=== PATIENT | male | born 1950 | race Caucasian/White ===

== ENCOUNTER 2019-04-29 15:41 | Inpatient (IN) | payer MEDICARE ==
[~2019-04-29] VITALS: Ht 154.9 cm; Wt 46.7 kg
[2019-04-29] VITALS (8 sets, daily range): BP systolic 110–139; BP diastolic 78–101
--- NOTE | ~2019-04-29 | PROC ---
[facility] [address] [place] [address] PROCEDURE REPORT Name: ALEXANDRIA AGUILERA Room: [address] IN M.R.#: [id number] Admission: 04/29/19 Attend Phys: Miguel Angel Gold MD Discharge: 05/13/19 Date of : 52 Report #: [id number] THIS REPORT FOR: //name// cc: Domitila Akhtar MD, Katrina MD ~ THIS REPORT FOR: //name// For GI report, please see the Provation report in Perceptive 7 content. By: [id number] Records Staff [facility] /BART
--- NOTE | ~2019-04-29 | PROC ---
[facility] [address] [place] [address] PROCEDURE REPORT Name: ALEXANDRIA AGUILERA Room: [address] ADM IN M.R.#: [id number] Admission: 04/29/19 Attend Phys: Miguel Angel Gold MD Discharge: Date of : 52 Report #: [id number] THIS REPORT FOR: //name// For GI report, please see the Provation report in Perceptive 7 content. By: [id number] Records Staff [facility] /BART
[2019-04-29] MEDS ORDERED: NORVASC 2.5 MG2.5 M1 PO (15:49)
[2019-04-29] MEDS ORDERED: BACLOFEN5 MG PO (15:52)
[2019-04-29] MEDS ORDERED: SERTRALINE HCL100 MG PO (15:52)
[2019-04-29 16:24] LABS: HEMATOCRIT 54.2 % (42.0-52.0); HEMOGLOBIN 18.6 gm/dL (14.0-18.0); MCH 33.1 pg (26.0-34.0); MCHC 34.4 g/dL (28.0-37.0); MCV 96.4 fL (80.0-100.0); MPV 8.5 fl. (7.2-11.1); NUCLEATED RBCS 0 /100WBC; PLATELET COUNT* 464 thou/uL (150-400); RBC 5.62 mil/uL (4.50-6.00); RDW-CV 14.4 % (10.5-14.5)
[2019-04-29 16:28] LABS: CALCIUM 9.6 mg/dL (8.5-10.1); CREATININE 1.8 mg/dL (0.6-1.3); POTASSIUM 4.5 mmol/L (3.5-5.1)
[2019-04-29 16:37] LABS: INR 1.4; PROTIME 13.7 Seconds (9.20-11.50)
[2019-04-29 16:39] LABS: ALBUMIN 4.1 g/dL (3.4-5.0); TOTAL BILIRUBIN 0.7 mg/dL (<0.1-1.0); TOTAL PROTEIN 9.2 g/dL (6.4-8.2)
[2019-04-29 16:45] LABS: URINE BLOOD NEGATIVE (Negative); URINE CLARITY CLEAR; URINE COLOR YELLOW; URINE GLUCOSE-RANDOM NEGATIVE (Negative); URINE KETONES TRACE (Negative); URINE LEUKOCYTES-REFLEX NEGATIVE (Negative); URINE NITRITE-REFLEX NEGATIVE (Negative); URINE PROTEIN NEGATIVE (Negative); URINE SPECIFIC GRAVITY 1.025 (1.005-1.030); URINE UROBILINOGEN 0.2 E.U./dl (0.2-1.0)
[2019-04-29 16:48] LABS: ICTOTEST (BILI CONFIRMATORY) Negative (Negative); URINE BILIRUBIN 2+ (Negative)
[2019-04-29 17:14] LABS: INFLUENZA A ANTIGEN Negative (Negative); INFLUENZA B ANTIGEN Negative (Negative)
[2019-04-29 17:14] LABS: ABSOLUTE LYMPHOCYTES 0.5 thou/uL (0.8-5.3); ABSOLUTE MONOCYTES 0.8 thou/uL (0.0-1.2); ABSOLUTE NEUTROPHILS 13.8 thou/uL (1.6-8.1); PLATELET ESTIMATE INCREASED
[2019-04-29 20:12] LABS: AMP/METHAMP Negative (Negative); BARBITURATES Negative (Negative); BENZODIAZEPINES Negative (Negative); COCAINE Negative (Negative); METHADONE Negative (Negative); OPIATES Negative (Negative); PCP Negative (Negative); THC POSITIVE (Negative)
[2019-04-30] VITALS (28 sets, daily range): BP systolic 114–155; BP diastolic 63–123
[2019-04-30 02:53] LABS: ABSOLUTE LYMPHOCYTES 0.6 thou/uL (0.8-5.3); ABSOLUTE MONOCYTES 0.9 thou/uL (0.0-1.2); ABSOLUTE NEUTROPHILS 11.8 thou/uL (1.6-8.1); BASOPHILS 0.2 %; HEMATOCRIT 41.2 % (42.0-52.0); LYMPHOCYTES 4.8 %; MCH 32.4 pg (26.0-34.0); MCHC 33.6 g/dL (28.0-37.0); MCV 96.2 fL (80.0-100.0); MONOCYTES 6.6 %; MPV 8.1 fl. (7.2-11.1); NUCLEATED RBCS 0 /100WBC; POLYS 88.4 %; RBC 4.28 mil/uL (4.50-6.00); RDW-CV 14.2 % (10.5-14.5); WBC 13.4 thou/uL (4.0-11.0)
[2019-04-30 03:01] LABS: HEMOGLOBIN 13.8 gm/dL (14.0-18.0); PLATELET COUNT* 320 thou/uL (150-400)
[2019-04-30 03:04] LABS: CALCIUM 7.8 mg/dL (8.5-10.1); CREATININE 1.3 mg/dL (0.6-1.3); POTASSIUM 3.6 mmol/L (3.5-5.1)
--- NOTE | 2019-04-30 05:34 | NUR ---
PT ADMITTED TO ICU AT 1950 FOR ACUTE RENAL FAILURE AND SEPSIS. PT RECIEVED FLUID BOLUS IN ED AND IV LEVAQUIN. PT'S SON NOTIFIED AND PROVIDED HEALTH HISTORY. PT NON VERBAL UNTIL 2300 THEN ASKING FOR SOMETHING TO DRINK. PT GIVEN PO FLUIDS WITHOUT DIFFICULTY. PT HAS GENERALIZED WEAKNESS MORE PROMINENT ON LEFT SIDE FROM CVA IN 2010. PT REPOSITIONED Q 2 HRS. BLOOD PRESSURE WITHIN NORMAL LIMITS DURING SHIFT. PT TACHYCARDIC THROUGHOUT NIGHT. HEART RATE 130 AT START OF SHIFT, CURRENTLY 115-125. PT AFEBRILE DURING SHIFT. PT MORE ALERT SHIFT PROGRESSED. WILL CONTINUE TO MONITOR CLOSELY.
--- NOTE | 2019-04-30 09:18 | EKG ---
[place] [address] ELECTROCARDIOGRAM REPORT Name: ALEXANDRIA AGUILERA Room: [address] ADM IN M.R.#: [id number] Admission: 04/29/19 Attend Phys: Miguel Angel Gold MD Discharge: Date of : 52 Report #: [id number] THIS REPORT FOR: //name// [facility] ED Test Date: 2019-04-29 Test Time: 15:53:41 Pat Name: ALEXANDRIA AGUILERA Department: Room: [facility] Gender: M Anesthesia Technician: : 1950 Requested By: Alexandria Saeed Order Number: [id number] MD: Giuseppe Aguilar Measurements Intervals [place] Rate: 140 P: 73 MI: 108 QRS: -70 QRSD: 84 T: 95 QT: 301 QTc: 460 Interpretive Statements Sinus tachycardia Consider right atrial enlargement Abnormal R-wave progression, late transition LVH with secondary repolarization abnormality Inferior infarct, old Artifact in lead(s) I,III,aVR,aVL,V1,V2,V3,V4,V5,V6 and baseline wander in lead (s) III,aVF No previous ECG available for comparison Electronically Signed On 04-30-2019 9:17:16 CERTIFIED WELLNESS PROGRAM COORDINATOR by Giuseppe Aguilar [email or web address] <ELECTRONICALLY SIGNED> By: Giuseppe Aguilar MD, FAC 04/30/19 0917 1553 1553 Giuseppe Aguilar MD, [facility] /EPI
--- NOTE | 2019-04-30 11:00 | NUR ---
INT ROUNDS: PT ADMITTED WITH ARF/SEPSIS. PER NURSING, HAVING DIFFICULTY SWALLOWING TODAY AND CONFUSED. PT NOT ABLE TO ANSWER QUESTIONS OTHER THEN HE LIVES WITH SON AND THAT SON WORKS. ATTEMPTED TO CONTACT SON/JOLYNN, NO ANSWER BUT LEFT MESSAGE
[2019-04-30 15:27] LABS: CALCIUM 8.3 mg/dL (8.5-10.1); CREATININE 1.3 mg/dL (0.6-1.3); POTASSIUM 3.5 mmol/L (3.5-5.1)
--- NOTE | 2019-04-30 17:44 | NUR ---
PT AOX1-2 THIS SHIFT. PT HAD ISSUES CHOKING WITH MORNING PILLS AND SPEECH WAS CONSULTED. SPEECH DID AN BEDSIDE SWALLOW AND THOUGHT THE PT MAY NEED A VIDEO SWALLOW BUT WAS OKAY WITH MECHANICAL GROUND DIET WITH ASPIRATION PXNS IN PLACE TO PREVENT ASPIRATION. AT LUNCH THIS RN ATTEMPTED TO FEED PT WITH ALL ASPIRATION PXNS IN PLACE AND REMINDING THE PT TO TAKE SLOW SIPS AND AFTER A FEW BITES OF MASHED POTATOES AND CARROTS THE PT HAD A COUGHING SPELL WHEN DRINKING HIS ICED TEA. HE VERBALIZED EXHAUSTION AFTER THE COUGHING SPELL AND WAS OKAY TO WAIT FOR SPEECH TO DO A VIDEO SWALLOW TO SEE IF HE WAS ASPIRATING. PT WENT FOR VIDEO SWALLOW THIS AFTERNOON AND IT WAS DETERMINED AFTER THIS HE NEEDED TO BE STRICT NPO. NPO STATUS MAINTAINED FOR THE REST OF THE SHIFT. DR LEHMAN WAS NOTIFIED AND MEDICATIONS CHANGED TO IV THAT COULD BE CHANGED AND GI CONSULT WAS PLACED FOR POSSIBLE PEG TUBE PLACEMENT. THIS RN CALLED AND UPDATED JOLYNN REGARDING THE PATIENT STATUS AND HE WAS TOLD ABOUT THE VIDEO SWALLOW AND POSSIBLE NEED FOR NG TUBE OR PEG TUBE PLACEMENT. PT SON WAS ALSO UPDATED REGARDING STACK REMOVAL AND HE STATED THAT HE WAS GLAD TO HAVE THAT OUT "SINCE THEY CAN BE SUCH AN INFECTION RISK". ASKED THE PIPE FITTER AMMONIA FOR AN EXTERNAL CATHETER FOR THIS PATIENT TO REDUCE INCONTINENCE AND POTENTIAL SKIN BREAKDOWN. BEDREST, Q2 TURNS, AND HOURLY ROUNDING MAINTAINED THIS SHIFT. WILL CONTINUE TO MONITOR AND ASSESS.
[2019-05-01] VITALS (10 sets, daily range): BP systolic 139–151; BP diastolic 86–101
[2019-05-01 04:10] LABS: ABSOLUTE LYMPHOCYTES 0.8 thou/uL (0.8-5.3); ABSOLUTE MONOCYTES 0.5 thou/uL (0.0-1.2); ABSOLUTE NEUTROPHILS 7.2 thou/uL (1.6-8.1); BASOPHILS 0.2 %; EOSINOPHILS 0.1 %; HEMATOCRIT 36.2 % (42.0-52.0); HEMOGLOBIN 12.4 gm/dL (14.0-18.0); MCHC 34.3 g/dL (28.0-37.0); MCV 96.4 fL (80.0-100.0); MONOCYTES 5.4 %; MPV 8.4 fl. (7.2-11.1); NUCLEATED RBCS 0 /100WBC; POLYS 85.3 %; RBC 3.76 mil/uL (4.50-6.00); WBC 8.4 thou/uL (4.0-11.0)
[2019-05-01 04:29] LABS: PLATELET COUNT* 228 thou/uL (150-400)
[2019-05-01 04:33] LABS: ALBUMIN 2.5 g/dL (3.4-5.0); CALCIUM 7.7 mg/dL (8.5-10.1); POTASSIUM 3.2 mmol/L (3.5-5.1); TOTAL BILIRUBIN 0.7 mg/dL (<0.1-1.0); TOTAL PROTEIN 5.8 g/dL (6.4-8.2)
--- NOTE | 2019-05-01 06:24 | NUR ---
VITALS STABLE, AFEBRILE. PT ORIENTED TO YEAR AND SELF. HARD TO UNDERSTAND BUT ABLE TO EXPRESS HIMSELF WHISPERING. DENIES PAIN. SLEPT THROUGH THE NIGHT. 600CC UOP, NO BM. REMAINS NPO. Q2 TURNS FOR SKIN INTEGRITY. WILL CONTINUE MONITORING.
--- NOTE | 2019-05-01 10:49 | NUR ---
REPORT GIVEN TO REA HENDRIX, ALL QUESTIONS ANSWERED. PATIENT TAKEN BY BED TO ROOM 230 AT THIS TIME WITH NURSING STAFF. ALL BELONGINGS, CHART SENT WITH ROSA MARIA.
--- NOTE | 2019-05-01 12:14 | NUR ---
PT TRANSFERRED TO TELE TODAY. CALL TO SON/JOLYNN. DISCUSSED HOME SITUATION/DC PLANNING. PER JOLYNN, PT HAD CVA IN 2011 WAS AT [facility] AND THEN TRANSFERRED TO A [facility] IN [facility] WHERE HE STAYED FOR ABOUT A 'YEAR'. JOLYNN AND HIS SISTER TOOK PT OUT OF THERE AT THAT TIME AND BROUGHT PT HOME. JOLYNN STATES HE HAS NOT HAD HH, THAT HE LIVES WITH HIM AND UP UNTIL ABOUT A WEEK AND A HALF AGO, PT WAS ABLE TO TRANSFER FROM W/C TO BED, TOILET OR SHOWER BENCH, COULD DO SOME COOKING AND CARE FOR SELF. JOLYNN WORKS NIGHTS AND PT GOES TO BED WHEN HE LEAVES. JOLYNN STATED HE THOUGHT PT WAS DOING FINE UNTIL RECENTLY. DISCUSSED CURRENT POC AND POSSIBLE NEED FOR FEEDING TUBE. HE WAS OPEN TO THAT, STATES HE IS PT'S DPOA, ASKED THAT HE BRING IN PAPERWORK STATING THAT. ALSO DISCUSSED POSSIBLE REHAB OR SNF, HE IS ALSO OPEN TO THAT, WOULD LIKE TO SEE PT GET BACK TO HIS 'BASELINE.' WILL FOLLOW
--- NOTE | 2019-05-01 12:52 | NUR ---
Nutrition: Possible PEG placement and TF start. RD put TF recs in [facility] this morning, under RD Assessment Forms. Recommend Nepro @ goal rate 30mL. May switch to Jevity 1.5 once renal FXN improves. See details in Assessment Forms.
--- NOTE | 2019-05-01 13:49 | 2DMMODE ---
[place] [address] 2 D/M-MODE ECHOCARDIOGRAM Name: ALEXANDRIA AGUILERA Room: [address] IN [facility]#: [id number] Admission: 04/29/19 Attend Phys: Miguel Angel Gold, Discharge: Date of : 52 Date of Service: 05/01/19 1349 Report #: [id number] THIS REPORT FOR: //name// APPROVED REPORT Study performed: 05/01/2019 11:08:48 EXAM: Comprehensive 2D, Doppler, and color-flow Echocardiogram Patient Location: In-Patient Room #: 230 Status: routine BSA: 1.38 HR: 94 bpm BP: 151/93 mmHg Rhythm: NSR Other Information Study Quality: Excellent Indications CVA/TIA Echo Enhancing Agent Indication: Rule out Shunt Agent(s) / Amount(s) Used: Agitated Saline 10 cc 2D Dimensions IVSd: 8.91 (7-11mm) LVOT Diam: 19.46 (18-24mm) LVDd: 33.86 mm PWd: 7.82 (7-11mm) Ascending Ao: 27.34 (22-36mm) LVDs: 14.82 (25-40mm) Aortic Root: 32.34 mm Aortic Valve AoV Peak Pool.: 0.86 m/s AO Peak Gr.: 2.98 mmHg LVOT Max P.54 mmHg AO Mean Gr.: 1.85 mmHg LVOT Mean P.41 mmHg LVOT Max V: 0.94 m/s AO V2 VTI: 15.01 cm LVOT Mean V: 0.76 m/s ADALGISA (VTI): 2.68 cm2 LVOT V1 VTI: 13.53 cm Mitral Valve E/A Ratio: 0.76 MV Decel. Time: 220.47 ms MV E Max Pool.: 0.59 m/[place] [address] 2 D/M-MODE ECHOCARDIOGRAM Name: ALEXANDRIA AGUILERA Room: [address] IN .R.#: [id number] Admission: 04/29/19 Attend Phys: Miguel Angel Gold, Discharge: Date of : 52 Date of Service: 05/01/19 1349 Report #: [id number] MV PHT: 63.94 ms MVA (PHT): 3.44 cm2 TDI E/Lateral E': 7.38 E/Medial E': 5.90 Medial E' Pool.: 0.10 m/s Lateral E' Pool.: 0.08 m/s Pulmonary Valve PV Peak Pool.: 0.90 m/s PV Peak Gr.: 3.27 mmHg Left Ventricle The left ventricle is normal size. There is normal LV segmental wall motion. There is normal left ventricular wall thickness. Left ventricular systolic function is normal. The left ventricular ejection fraction is within the normal range. LVEF is >70%. Grade I - abnormal relaxation pattern. Right Ventricle The right ventricle is normal size. The right ventricular systolic function is normal. Atria The left atrium size is normal. The interatrial septum is intact with no evidence for an atrial septal defect. The right atrium size is normal. Aortic Valve The aortic valve is normal in structure. No aortic regurgitation is present. There is no aortic valvular stenosis. Mitral Valve The mitral valve is normal in structure. There is trace mitral valve regurgitation noted. No evidence of mitral valve stenosis. Tricuspid Valve The tricuspid valve is normal in structure. Unable to assess PA pressure. Trace tricuspid regurgitation. Pulmonic Valve Pulmonic valve is not well visualized. There is no pulmonic valvular regurgitation. Great Vessels The aortic root is normal in size. IVC is normal in size and collapses >50% [place] [address] 2 D/M-MODE ECHOCARDIOGRAM Name: ALEXANDRIA AGUILERA Room: [address] IN .#: [id number] Admission: 04/29/19 Attend Phys: Miguel Angel Gold, Discharge: Date of : 52 Date of Service: 05/01/19 1349 Report #: [id number] Pericardium There is no pericardial effusion. <Conclusion> LVEF is >70%. The interatrial septum is intact with no evidence for an atrial septal defect. <ELECTRONICALLY SIGNED> By: Giuseppe Aguilar MD, FACC 05/01/19 1349 1349 1349 Giuseppe Aguilar MD, FACC /INF
--- NOTE | 2019-05-01 16:34 | NUR ---
I have reviewed the documentation by CASSANDRA INGRAM from 05/01/19 to 05/01/19 and I concur with it. CLARENCE BAL
--- NOTE | 2019-05-01 18:20 | NUR ---
REC PATIENT FROM ICU AROUND 1130AM. PATIENT ORIENTED TO SELF, BUT DIFFICULT TO CHECK ORIENTATION DUE TO WHISPERING. NSR TO ST ON TELE, PATIENT INCONTINENT OF BOWEL AND BLADDER. STRICT NPO DUE TO ASPIRATION RISK. I HAVE REVIEWED AND AGREE WITH REASSESSMENT OF SENIOR DATABASE ENGINEER TODD. HOURLY ROUNDING PERFORMED, CALL LIGHT WITHIN REACH OF PATIENT.
[2019-05-02] VITALS: BP 159/103
[2019-05-02 04:00] VITALS: BP 120/60
[2019-05-02 05:28] LABS: ABSOLUTE LYMPHOCYTES 0.7 thou/uL (0.8-5.3); ABSOLUTE MONOCYTES 0.6 thou/uL (0.0-1.2); ABSOLUTE NEUTROPHILS 12.4 thou/uL (1.6-8.1); BASOPHILS 0.1 %; HEMATOCRIT 41.5 % (42.0-52.0); HEMOGLOBIN 13.9 gm/dL (14.0-18.0); LYMPHOCYTES 4.8 %; MCH 32.2 pg (26.0-34.0); MCHC 33.4 g/dL (28.0-37.0); MCV 96.7 fL (80.0-100.0); MONOCYTES 4.1 %; MPV 9.1 fl. (7.2-11.1); NUCLEATED RBCS 0 /100WBC; PLATELET COUNT* 221 thou/uL (150-400); RDW-CV 13.7 % (10.5-14.5); WBC 13.7 thou/uL (4.0-11.0)
[2019-05-02 05:45] LABS: CALCIUM 8.3 mg/dL (8.5-10.1); CREATININE 0.9 mg/dL (0.6-1.3); POTASSIUM 4.1 mmol/L (3.5-5.1); TOTAL BILIRUBIN 0.9 mg/dL (<0.1-1.0); TOTAL PROTEIN 6.3 g/dL (6.4-8.2)
[2019-05-02 05:46] LABS: ALBUMIN 2.7 g/dL (3.4-5.0)
[2019-05-02 05:48] LABS: CHOLESTEROL 182 mg/dL (<200); HDL CHOLESTEROL 31 mg/dL (>40); LDL CHOLESTEROL 121 mg/dL (<100); TC:HDL 5.9 Ratio (Not establshd); TRIGLYCERIDE 152 mg/dL (<150); VLDL 30 mg/dL (<40)
[2019-05-02 06:05] LABS: SERUM ASSESSMENT CLEAR
[2019-05-02 08:00] VITALS: BP 126/91
[2019-05-02 12:10] VITALS: BP 133/85
[2019-05-02 17:10] VITALS: BP 129/86
--- NOTE | 2019-05-02 18:00 | NUR ---
VSS, ALERT BUT DIFFICULT TO CHECK ORIENTATON, PATIENT WHISPERS. SR TO ST ON TELE, RIGHT ARM FLACCID FROM STROKE IN 2010. GENERALIZED WEAKNESS AND REQUIRES CONTINUOUS REPOSITIONING. INCONTINENT OF BOWEL AND BLADDER, STRICT NPO DUE TO ASPIRATION. HOURLY ROUNDING PERFORMED, POSSESSIONS AND CALL LIGHT WITHIN REACH
[2019-05-02 20:00] VITALS: BP 164/98
[2019-05-03 00:10] VITALS: BP 123/81
[2019-05-03 04:29] VITALS: BP 137/89
[2019-05-03 05:47] LABS: HEMATOCRIT 37.8 % (42.0-52.0); HEMOGLOBIN 13.1 gm/dL (14.0-18.0); MCH 32.9 pg (26.0-34.0); MCHC 34.6 g/dL (28.0-37.0); MCV 95.3 fL (80.0-100.0); NUCLEATED RBCS 0 /100WBC; PLATELET COUNT* 189 thou/uL (150-400); RBC 3.97 mil/uL (4.50-6.00); RDW-CV 13.4 % (10.5-14.5); WBC 13.3 thou/uL (4.0-11.0)
--- NOTE | 2019-05-03 06:01 | NUR ---
PT HAD NO C/O PAIN, DID HAVE SOME DISCOMFORT REQUIRING FREQUENT REPOSITIONING. NO OTHER CONCERNS STATED BY PT. CURRENTLY ASLEEP IN BED WITH CALL LIGHT WITHIN REACH AND BED ALARM IS ON.
[2019-05-03 06:13] LABS: ALBUMIN 2.5 g/dL (3.4-5.0); CALCIUM 7.8 mg/dL (8.5-10.1); CREATININE 0.9 mg/dL (0.6-1.3); POTASSIUM 3.3 mmol/L (3.5-5.1); TOTAL BILIRUBIN 0.9 mg/dL (<0.1-1.0); TOTAL PROTEIN 5.9 g/dL (6.4-8.2)
[2019-05-03 06:41] LABS: ABSOLUTE LYMPHOCYTES 1.2 thou/uL (0.8-5.3); ABSOLUTE MONOCYTES 0.5 thou/uL (0.0-1.2); ABSOLUTE NEUTROPHILS 11.6 thou/uL (1.6-8.1); ANISOCYTOSIS 1+; PLATELET ESTIMATE ADEQUATE; POIKILOCYTOSIS 1+
[2019-05-03 07:17] LABS: ESR (SEDRATE) 40 mm/hr (0-20)
[2019-05-03 08:00] VITALS: BP 126/96
[2019-05-03 12:28] VITALS: BP 135/88
[2019-05-03 16:30] VITALS: BP 134/80
--- NOTE | 2019-05-03 18:30 | NUR ---
VSS, PT ALERT BUT DIFFICULT TO CHECK ORIENTATION-PT WHISPERS, ST ON TELE, INCONTINENT OF B&B, MAX ASSIST-FLACCID RIGHT ARM AND GENERALIZED WEAKNESS DUE TO STROKE IN 2010, STRICT NPO DUE TO ASPIRATION. HOURLY ROUNDING PERFORMED, CALL LIGHT WITHIN REACH.
[2019-05-03 20:12] VITALS: BP 140/94
[2019-05-04] VITALS: BP 151/97
[2019-05-04 04:00] VITALS: BP 162/96
--- NOTE | 2019-05-04 05:31 | NUR ---
PATIENT REMAINS NPO. INCONTINENT OF URINE AND BOWEL MULTIPLE TIMES THROUGHOUT SHIFT. JOVON CARE PROVIDED WITH INCONTINENCE CHECKS. PATIENT DENIES PAIN. POSSIBLE PEG TUBE PLACEMENT. PENDING CONSENT FROM SON/DPOA. CALL LIGHT WITHIN REACH
[2019-05-04 05:49] LABS: ABSOLUTE LYMPHOCYTES 0.9 thou/uL (0.8-5.3); ABSOLUTE MONOCYTES 0.7 thou/uL (0.0-1.2); ABSOLUTE NEUTROPHILS 9.7 thou/uL (1.6-8.1); BASOPHILS 0.1 %; EOSINOPHILS 0.4 %; HEMATOCRIT 38.8 % (42.0-52.0); HEMOGLOBIN 13.5 gm/dL (14.0-18.0); LYMPHOCYTES 7.9 %; MCH 33.2 pg (26.0-34.0); MCHC 34.8 g/dL (28.0-37.0); MCV 95.6 fL (80.0-100.0); MONOCYTES 6.1 %; MPV 9.3 fl. (7.2-11.1); NUCLEATED RBCS 0 /100WBC; PLATELET COUNT* 203 thou/uL (150-400); POLYS 85.5 %; RBC 4.06 mil/uL (4.50-6.00); RDW-CV 13.5 % (10.5-14.5); WBC 11.4 thou/uL (4.0-11.0)
[2019-05-04 06:01] LABS: INR 1.1; PROTIME 11.5 Seconds (9.20-11.50)
[2019-05-04 06:05] LABS: CALCIUM 8.2 mg/dL (8.5-10.1); CREATININE 0.8 mg/dL (0.6-1.3); POTASSIUM 4.1 mmol/L (3.5-5.1)
--- NOTE | 2019-05-04 08:53 | NUR ---
Nutrition: Pt NPO d/t aspiration. PEG to be placed. RECOMMEND JEVITY 1.5 @ GOAL RATE 40mL/HR. OR IF BOLUS FEEDS, JEVITY 1.5 @ 4-5 CARTONS PER DAY. See details in RD Reassessment Form.
--- NOTE | 2019-05-04 09:55 | NUR ---
PT OFF UNIT TO PREOP.
--- NOTE | 2019-05-04 10:23 | NUR ---
CM CALLED PT SON, JOLYNN, 2X RE: DPOA; LEFT VOICEMAILS.
[2019-05-04 12:00] VITALS: BP 147/100
--- NOTE | 2019-05-04 12:03 | CON ---
[facility] [address] [place] [address] CONSULTATION Name: ALEXANDRIA AGUILERA Room: [address] IN M.R.#: [id number] Admission: 04/29/19 Attend Phys: Miguel Angel Gold MD Discharge: Date of : 52 Report #: [id number] THIS REPORT FOR: //name// CC: Miguel Angel Trana Giovana DATE OF SERVICE: 04/30/2019 HISTORY OF PRESENT ILLNESS: A 68-year-old male patient, who is unable to provide any history at all. I called the patient's son whose number is in the chart, but he did not continuous pickling line pickler his cell phone. History is completely from the record and that also only from the Emergency Room physician because he was the only one who had any contact with the patient's son. By history, the patient is deteriorating in last few days. 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 The record indicated that he had a stroke in 2010. The son indicated to the Emergency Room physician that the patient can accomplish his daily activity, but from the amount of deficit he has, it will be difficult. In any event, he has deteriorated and on examination, it was found that his white count was up and his sodium is up at 158. His BUN is 79 and is 57 today, so he appeared to be significantly dehydrated with severe hypernatremia. His calcium is down. REVIEW OF SYSTEMS: Basically unavailable except from the record and to indicate that the patient had stroke in 2010. It is not clear what hospital he was in and what his residual weakness was except from the interview of Emergency Room physician with the son. A 14-point review of system was attempted, but this is all I can get. PAST MEDICAL HISTORY: Positive for CVA and hepatitis as per records. FAMILY HISTORY: Unavailable. SOCIAL HISTORY: Apparently, he does not smoke. PHYSICAL EXAMINATION: Indicate that he does not know what month it is. He does have some speech, which is difficult to understand. He does not know what hospital he is in. His cranial nerve examination 212 was attempted. 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 The right spastic hemiparesis involving right upper and right lower extremity. He moves the left side upper and lower extremity, but does not cooperate with any further testing. I could not look at the fundus. Cardiac examinations appear unremarkable. He does have some respiratory difficulty, but no edema, cyanosis or jaundice. LABORATORY DATA: Summarized above. CT 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 I do not think further plan can be made until we can contact the son. We will continue to make an effort. I also need to find out how aggressive they want to be and presently I will suggest continuing the correction of his metabolic problems. Dr. Moore will follow up this patient with you from tomorrow. <ELECTRONICALLY SIGNED> By: Aníbal Mendez MD 05/04/19 1203 1056 [id number] Mendez MD /nt
--- NOTE | 2019-05-04 12:03 | EEG ---
[facility] [address] [place] [address] EEG STUDY REPORT Name: ALEXANDRIA AGUILERA Room: [address] IN M.R.#: [id number] Admission: 04/29/19 Attend Phys: Miguel Angel Gold MD Discharge: Date of : 52 Report #: [id number] THIS REPORT FOR: //name// CC: Miguel Angel Gold Domitila Akhtar DATE OF SERVICE: 05/01/2019 The patient is being evaluated for altered mental status. EEG was done by placing the electrode by standard 10-20 system of electrode placement. Both referential and sequential montages were used for recording. Background activity in this patient is asymmetrical. On the right side, it does go up to about 8 Hz, but left side, it is slower. On both sides, the activity is pretty slow. Photic stimulation is unremarkable. The patient became drowsy and that is how associated with bilateral slowing and vertex sharp waves. Throughout the record, no active epileptiform activity was noticed. IMPRESSION: This is an abnormal EEG because it is slow on both sides. In that circumstances, the left-sided lesion should be excluded. The EEG also is slow in generalized fashion, which is a nonspecific finding, which can occur with encephalopathy, dementia, effect of psychotropic medication, etc. Clinical correlation is recommended. <ELECTRONICALLY SIGNED> By: Aníbal Mendez MD 05/04/19 1203 1743 1917Aníbal Mendez MD /reva
--- NOTE | 2019-05-04 12:25 | NUR ---
PT RETURN FROM PROCEDURE WITH PEG TUBE IN PLACE. PEREZ RN REPORT THAT PEG TUBE IS OK TO USE FOR MEDS AND FLUSHES BUT NO CONTINOUS FEEDING RIGHT NOW. WILL CONTINUE TO ASSESS.
--- NOTE | 2019-05-04 15:33 | NUR ---
CHANGED DRESSING ON COCYX ARE AND APPLIED BARRIER CREAM. WILL CONTINUE TO TURN Q 2 HOURS
[2019-05-04 16:00] VITALS: BP 190/105
--- NOTE | 2019-05-04 16:49 | NUR ---
I have reviewed the documentation by CASSANDRA INGRAM from 05/04/19 to 05/04/19 and I concur with it. CLARENCE BAL
[2019-05-04 18:53] VITALS: BP 152/103
[2019-05-04 20:00] VITALS: BP 160/110
[2019-05-05] VITALS (10 sets, daily range): BP systolic 98–192; BP diastolic 57–121
--- NOTE | 2019-05-05 04:52 | NUR ---
ASSUMED PATIENT CARE AT 1900. ASSESSMENT COMPLETED CHARTED. PATIENT IS MED-SURG STATUS. HOURLY ROUNDING IN PLACE FOR PATIENT SAFETY. CLWR.
--- NOTE | 2019-05-05 11:24 | NUR ---
VM LEFT FOR PTS DIAMANTE NEIL TO CALL RE DC PLANNING AND SNU PLACEMENT
--- NOTE | 2019-05-05 13:26 | NUR ---
SPOKE WITH PT'S SON JOLYNN WHO IS DPOA ON PHONE. HE HAS FINANCIAL CONCERNS ABOUT PT GOING TO SNF AND THINKS HE WILL REQUIRE LTC AFTER SNU. REQUESTED INFORMATION TO BE SENT TO [facility] "AND OTHER PLACES IN [place] THAT ARE [place]". REFERRALS SENT TP [facility]. WILL AWAIT ACCEPTANCE
--- NOTE | 2019-05-05 14:59 | NUR ---
SPOKE TO ELOY AT [facility] FOR THE [facility]. SHE IS EVALUATING PT AND STATES THEY COULD POSSIBLY TAKE PT ON THEIR EXTENDED UNIT WITH TRANSFER TO LTC WHEN APPROPRIATE
--- NOTE | 2019-05-05 16:09 | NUR ---
WOUND NURSE: GREGG SEEN TO ADDRESS SACRAL LESIONS. ALL LESIONS WITH PARTIAL THICKNESS TISSUE LOSS, PINKISH RED, NONGRANULATING TISSUE; NO ACTIVE DRAINAGE. NO PERIWOUND REDNESS. CLEANSED WITH SOAP AND WATER, RINSED, PATTED DRY. APPLIED MARATHON SKIN PROTECTANT TO EACH WOUND BED X 3 AND LET DRY. PATIENT TO BE REPOSITIONED EVERY ONE TO 2 HOURS LEFT SACRAL WOUND MEASURES 3.0 X 3. X 0.1 CM. RIGHT SUPERIOR SACRAL LESION MEASURES 1.5 X 1.0 X 0.1 CM. RIGHT INFERIOR SACRAL LESION MEASURES 1.0 X 1.0 X 0.1 CM. PATIENT IS NOT TEACHABLE.
--- NOTE | 2019-05-05 18:38 | NUR ---
PT HAS RESTED COMFORTABLY WITH SIGNS OF DISTRESS ON ROUNDING. BP HAS REMAINED ELEVATED. NON VERBAL. PT BEGAN BOWEL PREP TODAY FOR COLONOSCOPY SATURDAY.PT PEG TUBE IS FLUSHING WELL WITH MEDS AND LITTLE RESIDUAL. PT IS WC BOUND.FALL PRECAUTIONS IN PLACE. [facility]. REPORT CALLED TO ZAYRA WHO ASSUMED PT CARE WITHOUT FURTHER QUESTIONS.
--- NOTE | 2019-05-05 19:10 | NUR ---
PT ON FLOOR ROOM 312, BP LOW, TEMP ELEVATED, TACHY. NSG SUP NANCE ON FLOOR INITIATING RAPID RESPONSE. EKG OBTAINED, LABS DRAWN. PT AO TO SELF. DIAPHORETIC. REPORT RECEIVED FROM DAY RN. WILL CONTINUE TO MONITOR AND PROVIDE CARES NEEDED.
--- NOTE | 2019-05-05 19:45 | NUR ---
PT AO TO SELF, WHISPERS HIS NAME WHEN ASKED AND WHISPERS NO WHEN ASKED IF HE HAS PAIN. TREMORS, OCC SPASTIC MOVEMENT OF L ARM NOTED. VSS, TEMP 97.2 AXILLARY. SUP STATES EKG IMPROVED FROM ADMISSION. AWAITING LAB RESULTS.SAT 96%.
[2019-05-05 19:53] LABS: HEMOGLOBIN 14.4 gm/dL (14.0-18.0); MCH 32.7 pg (26.0-34.0); MCHC 34.3 g/dL (28.0-37.0); MCV 95.3 fL (80.0-100.0); MPV 9.4 fl. (7.2-11.1); NUCLEATED RBCS 0 /100WBC; PLATELET COUNT* 253 thou/uL (150-400); RBC 4.41 mil/uL (4.50-6.00); RDW-CV 13.5 % (10.5-14.5); WBC 15.3 thou/uL (4.0-11.0)
--- NOTE | 2019-05-05 20:00 | NUR ---
LAB RESULTS REVIEWED BY JOSR RICHARDS AND RN, CONSISTANT WITH PREVIOUS RESULTS. MEDS TO BE GIVEN PER PEG TUBE ORDERED, WILL CONTINUE TO MONITOR AND PROVIDE CARES NEEDED.
[2019-05-05 20:01] LABS: CALCIUM 8.3 mg/dL (8.5-10.1); CREATININE 0.9 mg/dL (0.6-1.3); POTASSIUM 3.1 mmol/L (3.5-5.1)
[2019-05-05 20:36] LABS: ABSOLUTE LYMPHOCYTES 1.4 thou/uL (0.8-5.3); ABSOLUTE MONOCYTES 0.8 thou/uL (0.0-1.2); ABSOLUTE NEUTROPHILS 13.2 thou/uL (1.6-8.1)
[2019-05-05 20:37] LABS: LARGE PLATELETS OCCASIONAL; PLATELET ESTIMATE ADEQUATE
--- NOTE | 2019-05-05 22:40 | NUR ---
WENT TO ROOM TO GIVE ADDITIONAL MEDICATIONS PER PEG TUBE, RESIDUAL BROWN LIQUID 60ML-MEDS NOT GIVEN PER PEG. LFA IV ABX INFUSING PER PUMP. PT TURNED AND REPOSITIONED, SMALL LIQUID BROWN BM-JOVON CARE GIVEN. PT BECAME VERY DIAPHORETIC WITH RAPID RESPIRATIONS, NOT ABLE TO ANSWER QUESTIONS REGARDING PAIN OR PROBLEMS. VS 192/121 142 30 SAT 79% O2 2L TEMP 96.0 AXILLARY. O2 INCREASED TO 4L SAT 88%, RAPID RESPONSE INITIATED 2256. VSS 2257 184/111 141 30 95.9 AXILLARY SAT 91% O2 6LNC. LABS DRAWN,CXR, ABG. NSG SUP PLACED CALL TO SON AND LEFT MESSAGE. TRANSFERRING TO TELE.
[2019-05-05 23:18] LABS: BE -6.8 mmol/L (-2 to +3); PCO2 36.3 mmHg (35.0-45.0); pH 7.322 (7.340-7.450)
--- NOTE | 2019-05-05 23:52 | NUR ---
REPORT GIVEN TO RUTH HENDRIX. VS 138/77 126 19 98.3 SAT 94% O2 6L. TRANSFER TO [facility] PER BED WITH BELONGINGS, ACCOMPANIED BY NURSING STAFF.
[2019-05-06 04:00] VITALS: BP 139/97
--- NOTE | 2019-05-06 05:38 | NUR ---
REPORT RECIEVED FROM PARAMJIT HENDRIX. PT TRANSPORTED TO ROOM 230 VIA BED. TELE MONITOR IN PLACE. I CONCUR WITH HER DOCUMENTATION. IV PATENT, FLUIDS INFUSING. PEG TUBE IN PLACE. PT HAD MULTIPLE LARGE LIQUID BOWEL MOVEMENTS THIS SHIFT. PT REPOSITIONED THROUGH NIGHT. FALL PRECAUTIONS IN PLACE. WILL CONTINUE WITH PLAN OF CARE.
[2019-05-06 06:58] LABS: ABSOLUTE LYMPHOCYTES 0.5 thou/uL (0.8-5.3); ABSOLUTE MONOCYTES 0.9 thou/uL (0.0-1.2); ABSOLUTE NEUTROPHILS 14.7 thou/uL (1.6-8.1); BASOPHILS 0.2 %; EOSINOPHILS 0.1 %; HEMATOCRIT 37.8 % (42.0-52.0); HEMOGLOBIN 13.1 gm/dL (14.0-18.0); LYMPHOCYTES 3.3 %; MCH 32.9 pg (26.0-34.0); MCHC 34.6 g/dL (28.0-37.0); MCV 95.1 fL (80.0-100.0); MONOCYTES 5.4 %; MPV 9.4 fl. (7.2-11.1); NUCLEATED RBCS 0 /100WBC; PLATELET COUNT* 240 thou/uL (150-400); RBC 3.98 mil/uL (4.50-6.00); RDW-CV 13.5 % (10.5-14.5); WBC 16.1 thou/uL (4.0-11.0)
[2019-05-06 07:12] LABS: ALBUMIN 2.4 g/dL (3.4-5.0); CALCIUM 7.7 mg/dL (8.5-10.1); CREATININE 0.8 mg/dL (0.6-1.3); POTASSIUM 3.8 mmol/L (3.5-5.1); TOTAL BILIRUBIN 0.5 mg/dL (<0.1-1.0); TOTAL PROTEIN 6.2 g/dL (6.4-8.2)
[2019-05-06 08:00] VITALS: BP 134/97
[2019-05-06 08:15] VITALS: BP 134/97; BP 139/107
--- NOTE | 2019-05-06 11:18 | NUR ---
RECEIVED CALL FROM ELOY WITH [facility]. THEY WERE GOING TO TAKE PT MEDICAID PENDING TO AN EXTENDED RECOVERY ROOM THEN TRANSITION TO LTC ONCE APPROPRIATE. DIAMANTE NEIL SPOKE TO ELOY AND REFUSED TO PROVIDE FINANCIAL INFORMATION FOR MEDICAID APPLICATION AND STATES HE NO LONGER WANTS [facility] AND "WILL LOOK AT OTHER PLACES IN [place]". ATTEMPT TO REACH DIAMANTE NEIL- LEFT
[2019-05-06 16:22] VITALS: BP 122/81
--- NOTE | 2019-05-06 17:58 | NUR ---
PT STABLE, ST ON TELE, HIGH FLOW NC@6L, NEW PEG TUBE PLACED, ABD BINDER, BOWEL PREP UNDERWAY FOR COLONOSCOPY, ALERT BUT DIFFICULT TO ORIENT DUE TO DIFFICULTY TALKING. INCONTINENT BOWEL AND BLADDER, HOURLY ROUNDING PERFORMED, POSSESSIONS AND CALL WITHIN REACH
--- NOTE | 2019-05-06 18:08 | CON ---
[facility] [address] [place] [address] CONSULTATION Name: ALEXANDRIA AGUILERA Room: [address] IN .R.#: [id number] Admission: 04/29/19 Attend Phys: Miguel Angel Gold MD Discharge: Date of : 52 Report #: [id number] THIS REPORT FOR: //name// CC: Miguel Angel Akhtar MD DICTATED BY: Katherine Wharton [facility] DATE OF SERVICE: 05/01/2019 Please note at the time of this dictation, the patient was seen and physically examined by myself. HISTORY OF PRESENT ILLNESS: This is a 68-year-old male who presented to the Emergency Room that was dropped off by his son with mental status changes that he was very lethargic, drowsy and very weak with a history of previous stroke and having right hemiparesis that was noted and wheelchair bound. Apparently when he was at home, he has been unable to care for himself and when he was brought to the ER, he was noted to be very emaciated, a very thin and unable to clear to raise his arms or legs or his lower extremities. He is very difficult to understand. He mumbles and whispers and has very low phonation. In attempting to talk to him asking about difficulty swallowing, he says that has been for some time. He cannot quantify, unable to see if he has ever seen a filling and stapling machine operator, EGD or colonoscopy before. He has not seen in our office. We have no records in regards to him. Questionable if he had another stroke at this time and waiting for an MRI. Neurology is on board. ALLERGIES: No known drug allergies. MEDICATIONS FROM HOME: Amlodipine, baclofen and ____. PAST MEDICAL HISTORY: He had a stroke in 2010 and a history of hepatitis C, unclear if he was ever treated or active. PAST SURGICAL HISTORY: None. FAMILY HISTORY: Not applicable. SOCIAL HISTORY: No alcohol, tobacco or illegal drug use and unclear as to whom he lives within either his son or if he lives on his own. REVIEW OF SYSTEMS: Twelve-point review of systems is unable to be done due to his being a poor historian and difficulty in understanding him. PHYSICAL EXAMINATION: [place] [address] CONSULTATION Name: ALEXANDRIA AGUILERA Room: [address]#: [id number] Admission: 04/29/19 Attend Phys: Miguel Angel Gold MD Discharge: Date of : 51 Report #: [id number] VITAL SIGNS: Temperature 36.9, pulse 96, respirations 18, blood pressure 150/97. HEART: Regular rate and rhythm. LUNGS: Diminished. ABDOMEN: Soft, positive bowel sounds in all 4 quadrants with no masses or tenderness noted. NEUROLOGIC: The patient is very cachectic looking and very frail and thin. LABORATORY DATA: Hemoglobin is 12.4, white count is 8.4, platelets 228. Sodium is 156, potassium 3.2. His CRP is 22.6. ESR is 40. GFR is 75. CT of the abdomen and pelvis essentially negative. LFTs: Total bilirubin 0.7, alk phos 97, ALT 53, AST is 60. Video swallow indicated aspiration with thin liquids and poor swallowing function was noted. IMPRESSION: 1. Difficulty swallowing. 2. Aspiration noted with thin liquids. 3. History of hepatitis C virus, we will check if it is active or not. 4. Severe dehydration. 5. Weakness. 6. History of stroke in 2010. PLAN: 1. We will await full evaluation by Neurology regarding history of stroke and whether or not he has had a recurrent one. 2. The patient may likely need PEG due to his swallowing test. We will wait until after his MRI to make further recommendations. Thank you for allowing us to participate in this patient's care. Please do not hesitate to call with any questions in regard to this consult. <ELECTRONICALLY SIGNED> By: Owen Suggs DO 05/06/19 1808 1224 0100Owen Suggs DO /nt
[2019-05-06 20:00] VITALS: BP 136/95
[2019-05-07] VITALS: BP 144/96
[2019-05-07 04:00] VITALS: BP 182/102
--- NOTE | 2019-05-07 05:01 | NUR ---
ASSUMED PT CARE AT 1930. NURSING ASSESSMENT COMPLETED THIS SHIFT. SR/ST THIS SHIFT. HOURLY ROUNDING COMPLETED. Q2H REPOSITIONING COMPLETED. PT ON BOWEL PREP AT START OF SHIFT. PT COMPLETED BOWEL PREP AT 0300. HOURLY ROUNDING COMPLETED. HIGH FALL PRECAUTIONS IN PLACE. CALL LIGHT WITHIN REACH. PT DENIES PAIN THIS SHIFT. NPO FOR COLONOSCOPY.
[2019-05-07 05:52] VITALS: BP 102/66
[2019-05-07 08:00] VITALS: BP 114/70
[2019-05-07 12:00] VITALS: BP 148/83
[2019-05-07 20:00] VITALS: BP 132/81
[2019-05-08] VITALS (24 sets, daily range): BP systolic 73–210; BP diastolic 50–116
--- NOTE | 2019-05-08 04:20 | NUR ---
RAPID RESPONSE TEAM CALLED AT 0355. PT TACHYPNIC, DIAPHORETIC, WET LUNG SOUNDS. STAT ORDERS INICITATED FOR EKG, ACCU CHECK BS 137, BIPAP, STAT LABS, STAT CXR, STAT ABGS. PT DPOA NOTIFIED OF PATIENT CHANGE IN CONDITION AND STATED "DO WHAT YOU HAVE TO DO". DR. NICHOLS PAGED FOR CHANGE IN CONDITION.
[2019-05-08 04:23] LABS: BE 0.3 mmol/L (-2 to +3); PCO2 44.8 mmHg (35.0-45.0); PO2 67.4 mmHg (75.0-100.0); pH 7.378 (7.340-7.450)
[2019-05-08 04:33] LABS: HEMATOCRIT 34.6 % (42.0-52.0); HEMOGLOBIN 12.1 gm/dL (14.0-18.0); MCH 33.1 pg (26.0-34.0); MCHC 34.9 g/dL (28.0-37.0); MCV 94.9 fL (80.0-100.0); MPV 9.2 fl. (7.2-11.1); RBC 3.65 mil/uL (4.50-6.00); RDW-CV 13.4 % (10.5-14.5); WBC 13.2 thou/uL (4.0-11.0)
[2019-05-08 04:48] LABS: CALCIUM 7.8 mg/dL (8.5-10.1); CREATININE 0.7 mg/dL (0.6-1.3); POTASSIUM 3.4 mmol/L (3.5-5.1)
[2019-05-08 04:52] LABS: ALBUMIN 2.5 g/dL (3.4-5.0); TOTAL BILIRUBIN 0.3 mg/dL (<0.1-1.0); TOTAL PROTEIN 5.7 g/dL (6.4-8.2)
--- NOTE | 2019-05-08 05:49 | NUR ---
ASSUMED CARE OF THIS PT AT APPROX 1930. PT IS LETHARGIC BUT AROUSABLE AND IS ABLE TO FOLLW SOME SIMPLE COMMANDS. HE IS TRACING ST ON THE DIRECTOR OF GROUP SALES. VSS ON 2L OF O2/NC. AT APPROX 0355, THIS PT STARTED GETTING DYSPNEIC, DIAPHORETIC, HEART RATE IS IN THE 160'S, spO2 IS AT 67%, RR 28, .RAPID RESPONSE WAS INITIATED, PT WAS PUT ON BIPAP AT 16/8, BUR 16, FIO2 100%,DR NICHOLS WAS INFORMED. PT spO2 IMPROVED TO 93% ON THE BIPAP. PT IS CLOSELY MONITORED. PT IS TO BE TRANSFERED TO ICU PER DR NICHOLS. REPORT GIVEN TO NOEMY AT APPROX 0574.
--- NOTE | 2019-05-08 10:30 | NUR ---
INT ROUNDS: CONTINUE TO FOLLOW, PT TACHY AND SOB AFTER PROCEDURE. CALL TO SON/JOLYNN, HE STATED HE HAD CONSIDERED OTHER SNFS AND THAT HE'D LIKE [facility] CHECKED. DISCUSSED OTHER OPTIONS AND HE PLANS TO DO MORE INVESTIGATING. ANTICIPATE NO DC BEFORE EARLY NEXT WEEK. DC RADIOGRAPHER CARDIAC CATHETERIZATION TO FAX REFERRAL TO [facility]
--- NOTE | 2019-05-08 13:53 | NUR ---
WOUND NURSE: PATIENT FOLLOWED UP REGARDING SACRAL SUPERFICIAL SKIN LESIONS (STAGE 2 PRESSURE INJURIES). SLIGHT IMPROVEMENT IN WOUND CHARACTERISTICS COMPARED TO WHEN SEEN ON 05/05. EPITHELIAL TISSUE FORMING AROUND THE EDGES. PINK NONGRANULATING TISSUE IN EACH WOUND BED. ALL CLEANSED WITH SOAP AND WATER, RINSED WITH WATER, THEN PATTED DRY. APPLIED MARATHON LIQUID SKIN PROTECTANT, THEN REPOSITIONED PATIENT ONTO HIS RIGHT SIDE WITH THE HELP OF HIS NURSE. WOUND MEASUREMENTS WERE DOCTUMENTED IN THE INTERVENTIONS AND HAVE NOT CHANGED SINCE SEEN ON 05/05.
--- NOTE | 2019-05-08 14:44 | NUR ---
FAXED REFERRAL TO [facility]. WILL CONFIRM WITH GIORGIO/INTAKE THAT SHE RECEIVED AND WILL REVIEW FOR DC NEXT WEEK. [phone]; [phone].
--- NOTE | 2019-05-08 18:28 | CON ---
[address] [address] CONSULTATION Name: ALEXANDRIA AGUILERA Room: [address] IN .R.#: [id number] Admission: 04/29/19 Attend Phys: Miguel Angel Gold MD Discharge: Date of : 51 Report #: [id number] THIS REPORT FOR: //name// cc: Domitila Akhtar MD, Katrina MD ~ THIS REPORT FOR: //name// CC: Miguel Angel Akhtar I was asked to see this 68-year-old gentleman for acute respiratory failure. HISTORY OF PRESENT ILLNESS: The patient is currently on BiPAP and is not able to give me any information. He was admitted on 04/29 for acute kidney injury, sepsis and dehydration. He had colonoscopy yesterday and overnight developed respiratory distress, and was transferred to ICU. Currently, he is on BiPAP, he is tachypneic, he is tachycardic. He had CT angiogram of the chest done, which did not show pulmonary embolism. It did show bibasilar infiltrates/atelectasis. He has very distended stomach and bowels. He is wheelchair bound, very malnourished, has history of CVAs. PAST MEDICAL HISTORY: History of CVA, acute kidney injury, sepsis, hypertension, hepatitis C. ALLERGIES: No known drug allergies. MEDICATIONS: Currently, he is on Lovenox 30 mg subcutaneous daily, Zosyn, potassium replacement. SOCIAL HISTORY: Does smoke marijuana. FAMILY HISTORY: Hypertension. REVIEW OF SYSTEMS: As mentioned as above, other systems otherwise negative. PHYSICAL EXAMINATION: GENERAL: This is very malnourished gentleman. He appears tachypneic. VITAL SIGNS: His respiratory rate is 30, heart rate is 130, blood pressure 190/90, temperature 36.5. HEENT: Normocephalic, atraumatic. Pupils equal, round, reactive to light. He has BiPAP mask on. NECK: There is no lymphadenopathy or thyromegaly. CARDIOVASCULAR: Tachycardic. CHEST: On inspection, he appears tachypneic. LUNGS: There are bibasilar crackles and expiratory wheezing. ABDOMEN: Distended. There is a PEG tube in place. There is no mass. EXTREMITIES: There is edema. LYMPHATICS: There is no lymphadenopathy. NEUROLOGIC: He is on BiPAP. SKIN: Chronic changes. LABORATORY DATA: I reviewed the following lab data: Chest x-ray shows bilateral hyperinflation. CT angiogram did not show pulmonary embolism, did show very diffuse gaseous distention of the esophagus and stomach and bowels, bibasilar consolidation/infiltrate. WBC 13.2, hemoglobin 12.1, platelets 339. Sodium 141, potassium 3.4, chloride 104, CO2 of 25, glucose 156, BUN 21, creatinine 0.7. Lactic acid 2. Troponin 0.06. BNP 530. ABG was done this morning, pH 7.37, pCO2 of 44, pO2 of 67. His influenza A and B was negative. His urine drug screen was positive for marijuana on admission. IMPRESSION: 1. Acute respiratory failure secondary to aspiration pneumonia, acute bronchospasm versus chronic obstructive pulmonary disease with acute exacerbation, rule out cardiac etiologies. 2. Abnormal CT of the chest. 3. Aspiration pneumonia. 4. Acute bronchospasm versus chronic obstructive pulmonary disease with acute exacerbation. 5. Sepsis. 6. Malnutrition. 7. History of cerebrovascular accident, wheelchair bound. 8. Acute kidney injury. 9. Hypokalemia. PLAN AND RECOMMENDATIONS: 1. Titrate FiO2 to keep O2 saturation 90%. 2. Start bronchodilator, Atrovent only. He is tachycardic. We will use Atrovent only, no albuterol. 3. Solu-Medrol 125 mg now, then 80 mg IV every 8. 4. Continue Lovenox for DVT prophylaxis. 5. Continue BiPAP, change setting to 18/8, rate of 16. Titrate FiO2 to keep O2 saturation 90%. He may require intubation, although he has multiple medical problems and malnourished. I will ask Dr. Gold to address code status. I do not believe it is a good idea to intubate this patient. 6. PEG tube to drainage. 7. Continue Zosyn. 8. Start Precedex. The patient appears agitated. 9. The findings and recommendations were discussed with RN and RT. Thank you very much for allowing me to participate in care of this very nice gentleman. <ELECTRONICALLY SIGNED> By: Anaya Melton MD 05/08/19 1828 1037 1211Anaya Melton MD /nt
--- NOTE | 2019-05-08 18:29 | NUR ---
PT CARE ASSUMED AFTER REPORT. ASSESSMENTS COMPLETE. SR/ST ON MONITOR. PT BECAME TACHY AND DIAPHORETIC. DR LEHMAN NOTIFIED . ORDERS RECEIVED. DR NICOLE ALSO HERE TO ASSESS PT AND PUT IN ORDERS. PT SR ON MONITORL NOW. PEG TUBE ATTATCHED TO STACK BAG FOR DECOMPRESSION PER DR NICOLE. CONTINUED BIPAP. PT INCONT OF 3 SMALL STOOLS TODAY. CLININEX INFUSING FOR NUTRITION. PT DENIES PAIN. PT NOT PROGRESSING TOWARDS GOALS.
[2019-05-09] VITALS (32 sets, daily range): BP systolic 97–174; BP diastolic 69–105
[2019-05-09 04:31] LABS: CALCIUM 7.9 mg/dL (8.5-10.1); CREATININE 0.8 mg/dL (0.6-1.3)
[2019-05-09 04:33] LABS: HEMOGLOBIN 11.9 gm/dL (14.0-18.0); MPV 9.2 fl. (7.2-11.1); NUCLEATED RBCS 0 /100WBC; PLATELET COUNT* 270 thou/uL (150-400); RBC 3.62 mil/uL (4.50-6.00); RDW-CV 13.7 % (10.5-14.5); WBC 18.4 thou/uL (4.0-11.0)
[2019-05-09 07:06] LABS: ABSOLUTE LYMPHOCYTES 0.2 thou/uL (0.8-5.3); ABSOLUTE MONOCYTES 0.2 thou/uL (0.0-1.2); PLATELET ESTIMATE ADEQUATE
--- NOTE | 2019-05-09 08:02 | NUR ---
ASSUMED PT CARE AT 0, SEE REASSESSMENT. VSS. INCONTINENT OF LARGE LOOSE BM THIS AM. COMPLETE BED BATH GIVEN, HAIR SHAMPOOED AND CONDITIONED. PT HAS BEEN TURNED Q2HR THROUGHOUT THE SHIFT. CALL LIGHT WITHIN REACH.
--- NOTE | 2019-05-09 09:52 | NUR ---
Pt extubated at 0935. O2 sat 93% on 3l nc.
--- NOTE | 2019-05-09 18:08 | NUR ---
PT OFF BIPAP MOST OF SHIFT. O2 TITRATED TO 1L NC. NO OUTPUT FROM PEG TUBE. DENIES PAIN. SEEN BY ST TODAY. FAILED SWALLOW TEST. REMAINS NPO. SLOWLY PROGRESSING TOWARDS GOALS.
[2019-05-10] VITALS (39 sets, daily range): BP systolic 110–160; BP diastolic 72–114
--- NOTE | 2019-05-10 03:56 | NUR ---
PT CURRENTLY RESONSIVE TO NOXIOUS STIMULI ONLY. EARLIER IN THE NIGHT PT WAS INTERACTING APPROPRIATELY AND FOLLOWING COMMANDS. AT THIS TIME, PT WITHDRAWLS TO PAINFUL STIMULI BUT DOES NOT FOLLOW COMMANDS OR TRACK. VSS. BP HAS TRENDED DOWN; HAD BEEN HYPERTENSIVE WITH SBP AVERAGING 150-160'S, SBP NOW 110-120'S.
[2019-05-10 04:09] LABS: BE -0.2 mmol/L (-2 to +3); PCO2 28.5 mmHg (35.0-45.0); pH 7.505 (7.340-7.450)
[2019-05-10 04:12] LABS: PO2 161.3 mmHg (75.0-100.0)
[2019-05-10 04:54] LABS: CALCIUM 8.3 mg/dL (8.5-10.1); CREATININE 0.6 mg/dL (0.6-1.3); MAGNESIUM 2.4 mg/dL (1.8-2.4)
[2019-05-10 05:28] LABS: HEMATOCRIT 34.9 % (42.0-52.0); HEMOGLOBIN 11.7 gm/dL (14.0-18.0); MCH 32.3 pg (26.0-34.0); MCHC 33.6 g/dL (28.0-37.0); MCV 96.2 fL (80.0-100.0); MPV 9.4 fl. (7.2-11.1); RBC 3.63 mil/uL (4.50-6.00); RDW-CV 13.5 % (10.5-14.5); WBC 15.7 thou/uL (4.0-11.0)
--- NOTE | 2019-05-10 17:28 | NUR ---
PT ON O2 NC THROUGH OUT THE DAY TO KEEP SAT 90% PER DR NICOLE ORDER. DENIES PAIN. MORE CONVERSATION TODAY. PPN INFUSING. SLOWLY PROGRESSING TOWARDS GOALS.
--- NOTE | 2019-05-10 23:57 | NUR ---
TRANSFERRED TO 202 VIA BED, ALL PERSONAL BELONGINGS SENT WITH PT.
[2019-05-11] VITALS (8 sets, daily range): BP systolic 137–173; BP diastolic 84–103
--- NOTE | 2019-05-11 02:06 | NUR ---
PT ALERT ORIENTED. SPEAKS IN WHISPERED VOICE. TELEMETRY SHOWS SR. ON BIPAP FOR 2 HOURS THEN PT REFUSED TO WEAR. O2 AT 2 LITERS NC NOW. STAGE 2 SACRAL ULCER. WILL CONTINUE TO MONITOR.
[2019-05-11 06:13] LABS: HEMATOCRIT 34.3 % (42.0-52.0); HEMOGLOBIN 11.8 gm/dL (14.0-18.0); MCH 32.8 pg (26.0-34.0); MCHC 34.4 g/dL (28.0-37.0); MCV 95.4 fL (80.0-100.0); MPV 8.8 fl. (7.2-11.1); RBC 3.6 mil/uL (4.50-6.00); RDW-CV 13.7 % (10.5-14.5); WBC 15.2 thou/uL (4.0-11.0)
--- NOTE | 2019-05-11 06:19 | NUR ---
PT BECAME MORE ANXIOUS. CONFUSED. ATIVAN GIVEN. RESTING QUIETLY WITH THE ATIVAN.
[2019-05-11 06:25] LABS: CALCIUM 7.9 mg/dL (8.5-10.1); CREATININE 0.6 mg/dL (0.6-1.3); POTASSIUM 3.9 mmol/L (3.5-5.1)
[2019-05-11] MEDS ORDERED: IPRATROPIU0.2 MG/1 M INH (09:10)
[2019-05-11] MEDS ORDERED: ASA81BEC PO (09:12)
[2019-05-11] MEDS ORDERED: AUGMENTIN600 MG/5 M PO (09:12)
--- NOTE | 2019-05-11 12:24 | NUR ---
FAXED REFERRALS TO [facility] [phone]; [phone]; [facility] [phone]; [phone]; MARILEE/INTAKE. WILL FOLLOW UP TO CONFIRM THEY RECEIVED AND BED AVAILABILITY.
--- NOTE | 2019-05-11 13:07 | PATH ---
[facility] [address] [place] [address] PATHOLOGY RPT PROCEDURE Name: ALEXANDRIA AGUILERA Room: [address] IN M.R.#: [id number] Admission: 04/29/19 Date of : 51 Discharge: Report #: [id number] Path Case #: [id number] LCA Accession Number: [id number] . 01 Material submitted: . rectum - BIOPSY OF DISTAL RECTAL ULCER. Modifiers: distal . 01 Clinical history: . None provided . 02 Diagnosis: Biopsy of distal rectal ulcer: - Minimal nonspecific active colitis with suggestion of hyperplastic change, negative for granulomas, viral inclusions and dysplasia. See comment. (MARIO ALBERTO:katia; 05/11/2019) MBR 05/11/2019 1033 Local . 02 Comment: The biopsy reveals benign colonic mucosa with superficial fresh hemorrhage and minimal active inflammation evidenced predominantly by some submucosal edema and neutrophils with a few neutrophils noted in the edematous lamina propria superficial to it. There is no significant crypt distortion or basal lymphoplasmacytosis to elevate a suspicion of inflammatory bowel disease. Ischemic features are also not apparent. (MARIO ALBERTO:katia; 05/11/2019) . 02 Electronically signed: . Jese Myers MD, Pathologist NPI- [id number] . 01 Gross description: . The specimen is received in formalin, labeled "Alexandria Aguilera, biopsy of distal rectal ulcer". Received is a segment of pale camacho soft tissue measuring 0.4 cm in maximum dimensions. The specimen is submitted entirely in cassette A1. (CAA; 05/08/2019) QAC/QAC 05/08/2019 1157 Local . 02 Pathologist provided ICD-10: K52.9 . 02 CPT . 932859 Specimen Comment: A courtesy copy of this report has been sent to [phone] Specimen Comment: [phone], Specimen Comment: Report sent to ,DR LEHMAN / [place] [address] PATHOLOGY RPT PROCEDURE Name: ALEXANDRIA AGUILERA Room: [address] IN .R.#: [id number] Admission: 04/29/19 Date of : 52 Discharge: Report #: [id number] Path Case #: [id number] Performed at: [address], [place], [place] [id number] MD Zion Reyes MD Phone: [phone] Performed at: 02 [facility] [address], [place], [place] [id number] MD Jese Myers MD Phone: [phone]
--- NOTE | 2019-05-11 15:02 | NUR ---
Juice Standardizer saw Pt today, tube feeding orders received. DC sales planner working on securing a SNF for Pt, anticipate dc once SNF found.
--- NOTE | 2019-05-11 15:23 | NUR ---
FAXED REFERRAL TO [facility] [phone]; [phone]. DCP WILL CALL TO CONFIRM THEY RECEIVED AND BED AVAILABILITY.
[2019-05-12 04:00] VITALS: BP 164/118
--- NOTE | 2019-05-12 04:15 | NUR ---
ASSUMED CARE OF PT AFTER REPORT AT 1930. PT A&OX1. CONFUSED. VSS. PHYSICAL ASSESSMENT COMPLETED AND CHARTED. PT ON O2 AT 3L NC/BIPAP AT HS. PT TRACING ST ON TELE. MANTAINED ON CONTINUOUS FEEDING-TOLERATED WELL. PT WITH STACK TO DEPENDENT DRAIN. PT TURNED TO SIDES. CALL LIGHT WITHIN REACH.
[2019-05-12 07:15] VITALS: BP 144/92
--- NOTE | 2019-05-12 10:36 | NUR ---
CM spoke with , Pt is medically stable to dc. DC product planner working to secure a skilled facility
--- NOTE | 2019-05-12 10:53 | CON ---
[address] [address] CONSULTATION Name: ALEXANDRIA AGUILERA Room: [address] IN .R.#: [id number] Admission: 04/29/19 Attend Phys: Miguel Angel Gold MD Discharge: Date of : 51 Report #: [id number] THIS REPORT FOR: //name// cc: Domitila Akhtar MD, Katrina MD ~ THIS REPORT FOR: //name// CC: Miguel Angel Akhtar DATE OF SERVICE: 05/09/2019 CARDIOLOGY CONSULTATION HISTORY OF PRESENT ILLNESS: The patient is a 68-year-old white male who I was asked to see in the hospital today after he was noted to have tachycardia. The patient has a long history. The patient apparently has had a previous stroke. He is primarily bedridden and in [place] [facility] [place]. He has had a trach in the past and has a PEG tube in place. He was brought to the Emergency Room with confusion, weak. PAST MEDICAL HISTORY: Significant for kidney disease, hypertension, hepatitis C and previous stroke. MEDICATIONS AT HALFWAY: Include amlodipine, baclofen, and sertraline. ALLERGIES: He has no known drug allergies. PHYSICAL EXAMINATION: At this time, GENERAL: Reveals an elderly, frail-appearing male, lying in bed. His eyes were open. VITAL SIGNS: Blood pressure 120/80, his pulse is 120. He is on BiPAP. HEENT: He was anicteric. Conjunctivae pink. Mucous membranes appear dry. CHEST: Clear to auscultation. CARDIOVASCULAR: Regular, tachycardia. ABDOMEN: Soft. EXTREMITIES: Had no edema. NEUROLOGIC: He was able to move extremities. His workup so far, the patient has been here at [facility] for the past week, he had CT scan on admission that showed previous stroke. His chest x-ray on admission showed normal heart size, clear lung ardon. Venous duplex scan on admission showed no DVT. He had a CT scan of the chest on admission that showed a small granuloma, minor atelectasis. Carotid Doppler study on admission showed plaque, but no high-grade stenosis. LABORATORY DATA: Sodium 140, BUN 35, creatinine 0.8. Troponin 0.08. BNP 530. TSH 0.2. His white blood cell count is 18.4, hematocrit 34.0. His urinalysis is negative for leukocytes. He had an echocardiogram on admission that showed ejection fraction greater than 70%. No evidence of an intracardiac shunt. No pericardial effusion. The patient had colonoscopy that showed chronic constipation, hemorrhoids. EGD showed hiatal hernia, normal duodenum. IMPRESSION AND RECOMMENDATIONS: 1. Sinus tachycardia. Concern about underlying infection. 2. Respiratory failure. The patient is on BiPAP. 3. Previous stroke. The patient is basically bedridden. 4. Sacral decubitus. 5. Encephalopathy. <ELECTRONICALLY SIGNED> By: Giuseppe Aguilar MD, FACC 05/12/19 1053 0710 [id number] Aguilar MD, FACC /nt
--- NOTE | 2019-05-12 11:09 | NUR ---
FAXED REFERRALS TO [facility] [phone]; [facility] [phone]; [facility] [phone]; AND [facility] [phone]. WILL FOLLOW UP TO CONFIRM THEY RECEIVED AND BED AVAILIABILITY.
[2019-05-12 11:43] VITALS: BP 159/99
--- NOTE | 2019-05-12 15:14 | NUR ---
CONFIRMED WITH BRIAN/KEO AT [facility], [phone] THAT THEY CAN ACCEPT PATIENT TOMORROW, 05/13/19. FAXED DOCTORS ORDERS AND SETTINGS FOR A BIPAP MACHINE AND DIETARY TUBE FEEDING ORDERS. SPOKE TO JOLYNN/SON [phone] ABOUT HIS FATHER'S DC PLANS TOMORROW. TALKED ABOUT PATIENT'S MEDICAID CURRENTLY INACTIVE BUT THAT [facility] WILL WANT TO DISCUSS INITIATING APPLICATION AGAIN FOR POSSIBLE LTC IN THE FUTURE.
[2019-05-12 16:00] VITALS: BP 148/93
[2019-05-12 20:00] VITALS: BP 137/91
[2019-05-13] VITALS: BP 141/95
[2019-05-13 04:00] VITALS: BP 147/98; BP 149/105
--- NOTE | 2019-05-13 05:49 | NUR ---
ASSUMED CARE OF PT AFTER REPORT AT 1930. PT A&OX1. CONFUSED. VSS. PHYSICAL ASSESSMENT COMPLETED AND CHARTED. PT ON RA/BIPAP AT HS. PT TRACING ST ON TELE. PT WITH STACK TO DEPENDENT DRAIN. PT TURNED TO SIDES. MAINTAINED ON NPO. PT ABLE TO SLEEP WELL ON BED. FALL PRECAUTIONS IN PLACE. CALL LIGHT WITHIN REACH.
[2019-05-13 08:45] VITALS: BP 150/94
--- NOTE | 2019-05-13 08:51 | NUR ---
Nutrition: Consult for TF bolus recs. Recommendations have been in [employer] and pt's chart. Again, recommend Jevity 1.5 @ 4-5 cartons per day, meeting 100% of needs. Free water: 175cc q6h. See RD Reassessment Form for details.
[2019-05-13 11:11] VITALS: BP 150/94
[2019-05-13 12:00] VITALS: BP 136/85
--- NOTE | 2019-05-13 13:55 | NUR ---
TRANSPORATION BY AMBULANCE HAS BEEN ARRANGED FOR DISCHARGE TODAY AT 3:00 PM. NOTIFIED PRATEEK/ADMISSIONS AT [facility] [phone] AND CALLED JOLYNN ELMORE (SON) [phone] OF TIME OF DISCHARGE AND TRANSPORTATION ARRANGEMENTS.
--- NOTE | 2019-05-13 14:12 | NUR ---
I have reviewed the documentation by CASSANDRA INGRAM from 05/13/19 to 05/13/19 and I concur with it. CLARENCE BAL
--- NOTE | 2019-05-20 13:43 | EKG ---
[place] [address] ELECTROCARDIOGRAM REPORT Name: ALEXANDRIA AGUILERA Room: [address] IN [facility]#: [id number] Admission: 04/29/19 Attend Phys: Miguel Angel Gold, Discharge: 05/13/19 Date of : 52 Date of Service: 05/08/19 1026 Report #: [id number] THIS REPORT FOR: cc: Domitila Akhtar MD, Katrina MD Blick,Giuseppe Moss MD [facility] ~ THIS REPORT FOR: //name// [facility] Test Date: 2019-05-08 Test Time: 10:26:08 Pat Name: ALEXANDRIA AGUILERA Department: Room: [address] Gender: M Sailor: : 1950 Requested By: Miguel Angel Gold Order Number: [id number] Reading MD: Giuseppe Aguilar Measurements Intervals [place] Rate: 140 P: 70 IN: 109 QRS: -48 QRSD: 86 T: 105 QT: 267 QTc: 408 Interpretive Statements Sinus tachycardia Probable left atrial enlargement Left anterior fascicular block LVH with secondary repolarization abnormality Compared to ECG 05/08/2019 03:59:03 Left ventricular hypertrophy now present Electronically Signed On 05-08-2019 12:31:46 BATTERYMAN by Giuseppe Aguilar [email or web address] <ELECTRONICALLY SIGNED> By: Giuseppe Aguilar MD, [facility] 05/08/19 1231 1026 1026 Giuseppe Aguilar MD, [facility] /EPI
--- NOTE | 2019-05-20 13:43 | EKG ---
[place] [address] ELECTROCARDIOGRAM REPORT Name: ALEXANDRIA AGUILERA Room: [address] IN [facility]#: [id number] Admission: 04/29/19 Attend Phys: Miguel Angel Gold, Discharge: 05/13/19 Date of : 52 Date of Service: 05/08/19 0359 Report #: [id number] THIS REPORT FOR: cc: Domitila Akhtar MD, Katrina MD Blick,Giuseppe Moss MD [facility] ~ THIS REPORT FOR: //name// [facility] Test Date: 2019-05-08 Test Time: 03:59:03 Pat Name: ALEXANDRIA AGUILERA Department: Room: [facility] Gender: M Aircraft Maintenance Technician: TERRANCE : 1950 Requested By: Marco Longo Order Number: [id number] Reading MD: Giuseppe Aguilar Measurements Intervals [place] Rate: 132 P: 72 PA: 123 QRS: -57 QRSD: 78 T: 40 QT: 271 QTc: 402 Interpretive Statements Sinus tachycardia left anterior fasicular block Consider right atrial enlargement Borderline ST elevation, anterior leads Baseline wander in lead(s) V6 Compared to ECG 05/05/2019 19:17:22 no change Electronically Signed On 05-08-2019 10:15:43 FRONT OFFICE HELP by Giuseppe Aguilar [email or web address] <ELECTRONICALLY SIGNED> By: Giuseppe Aguilar MD, [facility] 05/08/19 1015 0359 Giuseppe Aguilar MD, [facility] /EPI
--- NOTE | 2019-05-20 13:43 | EKG ---
[place] [address] ELECTROCARDIOGRAM REPORT Name: ALEXANDRIA AGUILERA Room: [address] IN [facility]#: [id number] Admission: 04/29/19 Attend Phys: Miguel Angel Gold MD Discharge: 05/13/19 Date of : 52 Report #: [id number] THIS REPORT FOR: //name// [facility] Test Date: 2019-05-05 Test Time: 19:17:22 Pat Name: ALEXANDRIA AGUILERA Department: Room: [facility] Gender: Analytic Programmer: SLJ : 1950 Requested By: Mitra Dupree Order Number: [id number] Jhon MD: Giuseppe Aguilar Measurements Intervals [place] Rate: 118 P: 80 [place]: 122 QRS: -58 QRSD: 84 T: 85 QT: 323 QTc: 453 Interpretive Statements Sinus tachycardia left axis Biatrial enlargement Artifact in lead(s) I,III,aVL Compared to ECG 04/29/2019 15:53:41 Left ventricular hypertrophy no longer present Electronically Signed On 05-06-2019 11:43:42 ETCHER HAND by Giuseppe Aguilar [email or web address] <ELECTRONICALLY SIGNED> By: Giuseppe Aguilar MD, FAC 05/06/19 1143 16 16 Giuseppe Aguilar MD, [facility] /EPI
== END 2019-05-13 14:40 | disposition short-term general hospital (02) | DRG 871 ==
LOC: M.ERS 15:41 → M.ICU 17:09 → M.TBA-ER 17:09 → M.2W 17:09 → M.ICU 20:17 → M.2W 05-01 10:50 → M.3W 05-05 19:40 → M.2W 05-06 00:31 → M.ICU 05-08 06:05 → M.2W 05-10 23:07
PROVIDERS: Emergency Medicine; Family Medicine; Internal Medicine; Internal Medicine Gastroenterology; ADMIT Internal Medicine
PROC: 5A09357 Assistance with Respiratory Ventilation, Less than 24 Consecutive Hours, Continuous Positive Airway Pressure (ICD-10-PCS; principal; 2019-05-03)
PROC: 0DH63UZ Insertion of Feeding Device into Stomach, Percutaneous Approach (ICD-10-PCS; 2019-05-04)
PROC: 0DBP8ZX Excision of Rectum, Via Natural or Artificial Opening Endoscopic, Diagnostic (ICD-10-PCS; 2019-05-07)
PROC: 5A09357 Assistance with Respiratory Ventilation, Less than 24 Consecutive Hours, Continuous Positive Airway Pressure (ICD-10-PCS; 2019-05-08)
PROC: 5A09357 Assistance with Respiratory Ventilation, Less than 24 Consecutive Hours, Continuous Positive Airway Pressure (ICD-10-PCS; 2019-05-09)
PROC: 5A09357 Assistance with Respiratory Ventilation, Less than 24 Consecutive Hours, Continuous Positive Airway Pressure (ICD-10-PCS; 2019-05-10)
PROC: 5A09357 Assistance with Respiratory Ventilation, Less than 24 Consecutive Hours, Continuous Positive Airway Pressure (ICD-10-PCS; 2019-05-11)
PROC: 5A09357 Assistance with Respiratory Ventilation, Less than 24 Consecutive Hours, Continuous Positive Airway Pressure (ICD-10-PCS; 2019-05-12)
PROC: 5A09357 Assistance with Respiratory Ventilation, Less than 24 Consecutive Hours, Continuous Positive Airway Pressure (ICD-10-PCS; 2019-05-13)
DX: A41.9 Sepsis, unspecified organism (principal); E43 Unspecified severe protein-calorie malnutrition; G93.41 Metabolic encephalopathy; J96.00 Acute respiratory failure, unspecified whether with hypoxia or hypercapnia; J69.0 Pneumonitis due to inhalation of food and vomit; N17.0 Acute kidney failure with tubular necrosis; J44.1 Chronic obstructive pulmonary disease with (acute) exacerbation; E87.0 Hyperosmolality and hypernatremia; K62.6 Ulcer of anus and rectum; Z68.1 Body mass index [BMI] 19.9 or less, adult; G81.11 Spastic hemiplegia affecting right dominant side; E87.6 Hypokalemia; E86.0 Dehydration; R13.10 Dysphagia, unspecified; I10 Essential (primary) hypertension; F12.90 Cannabis use, unspecified, uncomplicated; K44.9 Diaphragmatic hernia without obstruction or gangrene; D64.9 Anemia, unspecified; R63.4 Abnormal weight loss; R49.0 Dysphonia; K59.09 Other constipation; K64.4 Residual hemorrhoidal skin tags; L89.159 Pressure ulcer of sacral region, unspecified stage; R62.7 Adult failure to thrive; R13.12 Dysphagia, oropharyngeal phase; Z79.899 Other long term (current) drug therapy; Z82.49 Family history of ischemic heart disease and other diseases of the circulatory system; Z99.3 Dependence on wheelchair; Z79.82 Long term (current) use of aspirin; Z28.21 Immunization not carried out because of patient refusal; Z74.01 Bed confinement status